=== PATIENT | male | born 1990 | race Caucasian/White ===

== ENCOUNTER 2021-01-02 17:00 | Emergency (ER) | payer OTHER ==
[~2021-01-02] VITALS: Ht 177.8 cm; Wt 120.7 kg
[2021-01-02 17:15] VITALS: BP 143/76
--- NOTE | 2021-01-02 17:19 | NUR ---
Patient ambulated to bed 4 with a steady gait.
--- NOTE | 2021-01-02 18:10 | NUR ---
Dr. Marie at the bedside evaluating patient.
--- NOTE | 2021-01-02 18:35 | NUR ---
Dr. Marie at the bedside re-evaluating patient.
--- NOTE | 2021-01-02 18:55 | NUR ---
Patient discharged with v/s stable. Written and verbal after care instructions given and explained. Patient verbalized understanding. Ambulatory with steady gait. All questions addressed prior to discharge. Advised to follow up with PMD. work note given.
[2021-01-02 18:56] VITALS: BP 143/76
== END 2021-01-02 18:55 | disposition home or self-care (01) ==
LOC: MED 17:00
DX: G89.29 Other chronic pain (principal); M79.672 Pain in left foot; R20.0 Anesthesia of skin
CPT/HCPCS: 99281